=== PATIENT | female | born 1995 | race Caucasian/White ===

== ENCOUNTER → 2020-12-28 | Outpatient (CLI) | payer BC | LOC: MC.RAD 10:41 | DX: N63.20 Unspecified lump in the left breast, unspecified quadrant (principal) ==

== ENCOUNTER → 2021-02-09 | Outpatient (CLI) | payer BC | LOC: COL.RAD 08:02 | DX: K63.89 Other specified diseases of intestine (principal); Z97.5 Presence of (intrauterine) contraceptive device | CPT/HCPCS: Q9967 ==

== ENCOUNTER 2021-09-02 17:24 | Emergency (ER) | payer OTHER ==
[~2021-09-02] VITALS: Ht 167.6 cm; Wt 81.8 kg
[2021-09-02 18:00] LABS: COLLECTION METHOD CLEAN CATCH
[2021-09-02 18:09] LABS: PH 6 (5-8); SQUAMOUS EPITHELIAL None Seen /hpf (0-10); URINE APPEARANCE Clear (CLEAR/HAZY); URINE BACTERIA None Seen /hpf (NONE SEEN); URINE BILIRUBIN Negative (NEGATIVE); URINE BLOOD 1+ (NEGATIVE); URINE COLOR Colorless (YELLOW); URINE GLUCOSE Negative (NEGATIVE); URINE KETONE Negative (NEGATIVE); URINE LEUKOCYTE ESTERASE Negative (NEGATIVE); URINE NITRATE Negative (NEGATIVE); URINE PROTEIN(semi-quant) Negative (NEGATIVE); URINE RBC None Seen /hpf (0-2); URINE UROBILINOGEN Negative (NEGATIVE)
[2021-09-02 18:11] LABS: BASO # 0.1 K/mm3 (0.0-0.2); BASO % 1.3 % (0.0-2.0); EOS # 0.1 K/mm3 (0.0-0.7); EOS % 1.5 % (0.0-4.0); GRAN % 56.1 % (42.2-75.2); HEMATOCRIT 38.9 % (37.0-47.0); HEMOGLOBIN 13.4 g/dl (12.5-16.0); LYMPH # 2.4 K/mm3 (1.2-3.4); LYMPH % 33.8 % (20.0-51.0); MEAN CELL VOLUME 92 fl (80.0-100.0); MEAN CORPUSCULAR HEMOGLOBIN 32 pg (27-31); MEAN CORPUSCULAR HGB CONC 34 g/dl (33.0-37.0); MEAN PLATELET VOLUME 9.5 fl (7.4-10.4); MONO # 0.5 K/mm3 (0.1-0.6); PLATELET COUNT 323 K/mm3 (130-400); RED BLOOD COUNT 4.25 M/mm3 (4.10-5.30); REDCELL DISTRIBUTION WIDTH-CV 12.6 % (11.5-14.5)
[2021-09-02] MEDS ORDERED: LINZESS72 MCG PO (18:27)
[2021-09-02 18:28] LABS: BILIRUBIN,TOTAL 0.4 mg/dL (0.2-1.2); CALCIUM 9.4 mg/dL (8.4-10.2); CREATININE, serum 0.87 mg/dL (0.57-1.11); POTASSIUM 3.3 mmol/L (3.5-4.5); TOTAL PROTEIN 7.3 gm/dL (6.2-8.1)
[2021-09-02] MEDS ORDERED: LAMICTAL 25MG T25 MG PO (18:28)
[2021-09-02] MEDS ORDERED: MELATONIN ER10 MG PO (18:29)
[2021-09-02] MEDS ORDERED: LEXAPRO 10MG10 MG PO (18:29)
[2021-09-02 19:20] VITALS: BP 123/76; PULSE 76; TEMP 98.8
== END 2021-09-02 19:22 | disposition home or self-care (01) ==
LOC: COL.ER 17:24
PROVIDERS: Nurse Practitioner Primary Care
DX: R10.31 Right lower quadrant pain (principal); R10.32 Left lower quadrant pain; Z32.02 Encounter for pregnancy test, result negative
CPT/HCPCS: J1885

== ENCOUNTER 2021-10-08 11:12 | Emergency (ER) | payer OTHER ==
[~2021-10-08] VITALS: Ht 167.6 cm; Wt 90.5 kg
[~2021-10-08 11:12] MED LIST: LAMICTAL 25MG T25 MG PO; LEXAPRO 10MG10 MG PO; LINZESS72 MCG PO; MELATONIN ER10 MG PO
[2021-10-08 11:18] VITALS: TEMP 98.7
[2021-10-08] MEDS ORDERED: ZOFRAN ODT4 MG PO (13:03)
[2021-10-08] MEDS ORDERED: NORCO 325 MG-51 TAB PO (13:03)
[2021-10-08 13:11] VITALS: BP 109/79; PULSE 75
== END 2021-10-08 13:20 | disposition home or self-care (01) ==
LOC: COL.ER 11:12
DX: S09.90XA Unspecified injury of head, initial encounter (principal); W22.8XXA Striking against or struck by other objects, initial encounter; Y92.59 Other trade areas as the place of occurrence of the external cause; Y99.0 Civilian activity done for income or pay